=== PATIENT | female | born 1975 | race Caucasian/White ===

== ENCOUNTER 2016-06-15 20:44 | Emergency (ER) | payer BC ==
[~2016-06-15] VITALS: Ht 167.6 cm; Wt 128.0 kg
[~2016-06-15 20:44] MED LIST: LISI10TA PO; LORA-474 PO; MACR100C2 PO; MAGN400T; SYNT112T PO; ZOLO100T PO
[2016-06-15 20:52] VITALS: BP 150/96; PULSE 83; RESP 20; TEMP 98.1; O2SAT 99
[2016-06-15 21:52] VITALS: BP 143/93
[2016-06-15 22:35] VITALS: BP 135/74; PULSE 73; RESP 18; O2SAT 98
--- NOTE | 2016-06-15 22:57 | PD ---
HPI Chief Complaint: Hypertension Time Seen by Provider: 22:21 Travel History International Travel<30 days: No Contact w/Intl Traveler<30days: No Traveled to known affect area: No History of Present Illness HPI This 40-year-old female is complaining of pressure in her neck. She says she been having it off and on for the past 4 days or so. She also gets some pressure throughout her body. There is been no fever or chills and no cough or congestion. She checked her blood pressure at home and it was elevated has a history of polyposis hypothyroidism and is on Synthroid. She is on lisinopril/ hydrochlorothiazide for high blood pressure. She also has a history of anxiety and takes sertraline and Ativan. PFSH Past Medical History Depression: Yes Cancer: No Cardiovascular Problems: Yes Diabetes: Yes (Borderline) Patient Takes Glucophage: No Diminished Hearing: No Glaucoma: No Hepatitis: No Hiatal Hernia: No Hypertension: Yes Kidney Stones: Yes Medical other: No Respiratory: Yes (Asthma ) Immunizations Current: No Thyroid Disease: Yes Tetanus Vaccination: Unknown Influenza Vaccination: No ?: Unknown LMP: 05/19/16 Past Surgical History Abdominal Surgery: No Cardiac Surgery: No Ear Surgery: Yes Endocrine Surgery: No Eye Surgery: No Genitourinary Surgery: No Gynecologic Surgery: No Neurologic Surgery: No Oral Surgery: Yes (IMPACTED TOOTH RIGHT SIDE) Pacemaker: No Thoracic Surgery: No Other Surgery: Yes Social History Alcohol Use: Yes (SOCIALLY) Tobacco Use: No Substance Use: No Allergies-Medications (Allergen,Severity, Reaction): Coded Allergies: Latex (Verified Allergy, Mild, Burning, 06/15/16) Reported Meds & Prescriptions Reported Meds & Active Scripts Active Reported Synthroid (Levothyroxine Sodium) 112 Mcg Tab 112 Mcg PO DAILY Zoloft (Sertraline HCl) 100 Mg Tab 125 Mg PO DAILY Magnesium Oxide 400 Mg Tab 1 DAILY Ativan (Lorazepam) 1 Mg Tab 1 Mg PO DAILY PRN Lisinopril-Hctz 10-12.5 Mg Tab 1 Tab PO BID Review of Systems General / Constitutional: No: Fever, Chills Eyes: No: Diploplia, Blurred Vision HENT: Positive: Other (pressure in the throat), No: Headaches, Vertigo Cardiovascular: No: Chest Pain or Discomfort, Palpitations, Syncope Respiratory: No: Cough Gastrointestinal: No: Vomiting Genitourinary: No: Frequency, Dysuria Physical Exam Narrative GENERAL: Well-developed female SKIN: Warm and dry. HEAD: Atraumatic. Normocephalic. EYES: Pupils equal and round. No scleral icterus. No injection or drainage. ENT: No nasal bleeding or discharge. Mucous membranes pink and moist. NECK: Trachea midline. No JVD. CARDIOVASCULAR: Regular rate and rhythm. No murmur appreciated. RESPIRATORY: No accessory muscle use. Clear to auscultation. Breath sounds equal bilaterally. GASTROINTESTINAL: Abdomen soft, non-tender, nondistended. Hepatic and splenic margins not palpable. MUSCULOSKELETAL: No obvious deformities. No clubbing. No cyanosis. No edema. NEUROLOGICAL: Awake and alert. No obvious cranial nerve deficits. Motor grossly within normal limits. Normal speech. PSYCHIATRIC: Appropriate mood and affect; insight and judgment normal. Data Data Last Documented VS Vital Signs Date Time Temp Pulse Resp B/P Pulse Ox O2 Delivery O2 Flow Rate FiO2 06/15/16 23:54 75 18 144/77 98 Room Air 06/15/16 20:52 98.1 Orders Electrocardiogram (06/15/16 22:54) Complete Blood Count With Diff (06/15/16 22:54) Basic Metabolic Panel (Bmp) (06/15/16 22:54) Magnesium (Mg) (06/15/16 22:54) Labs Laboratory Tests Test 06/15/16 23:00 White Blood Count 9.2 TH/MM3 Red Blood Count 3.80 MIL/MM3 Hemoglobin 10.7 GM/DL Hematocrit 32.2 % Mean Corpuscular Volume 84.6 FL Mean Corpuscular Hemoglobin 28.1 PG Mean Corpuscular Hemoglobin 33.2 % Concent Red Cell Distribution Width 15.1 % Platelet Count 242 TH/MM3 Mean Platelet Volume 8.4 FL Neutrophils (%) (Auto) 56.0 % Lymphocytes (%) (Auto) 29.0 % Monocytes (%) (Auto) 6.1 % Eosinophils (%) (Auto) 5.2 % Basophils (%) (Auto) 3.7 % Neutrophils # (Auto) 5.1 TH/MM3 Lymphocytes # (Auto) 2.7 TH/MM3 Monocytes # (Auto) 0.6 TH/MM3 Eosinophils # (Auto) 0.5 TH/MM3 Basophils # (Auto) 0.3 TH/MM3 CBC Comment DIFF FINAL Differential Comment Sodium Level 140 MEQ/L Potassium Level 4.0 MEQ/L Chloride Level 106 MEQ/L Carbon Dioxide Level 24.4 MEQ/L Anion Gap 10 MEQ/L Blood Urea Nitrogen 27 MG/DL Creatinine 1.20 MG/DL Estimat Glomerular Filtration 49 ML/MIN Rate Random Glucose 90 MG/DL Calcium Level 8.3 MG/DL Magnesium Level 2.4 MG/DL [facility] Medical Decision Making Medical Screen Exam Complete: Yes Emergency Medical Condition: Yes Medical Record Reviewed: Yes Differential Diagnosis Differential includes hypertension, electrolyte imbalance, dysrhythmia Narrative Course Acetaminophen magnesium are normal EKG shows normal sinus rhythm. Patient is stable for discharge. Etiology for her symptoms have not determined. Her symptoms are somewhat atypical Diagnosis Primary Impression: Hypertension Disposition: 01 DISCHARGE HOME Condition: Stable Syed Zhao MD Jun 15, 2016 22:57
[2016-06-15 23:09] LABS: AUTOMATED NEUTROPHIL # 5.1 TH/MM3 (1.8-7.7); BASOPHIL # 0.3 TH/MM3 (0-0.2); BASOPHIL % 3.7 % (0.0-2.0); EOSINOPHIL # 0.5 TH/MM3 (0-0.4); EOSINOPHIL % 5.2 % (0.0-4.0); HEMATOCRIT 32.2 % (35.0-46.0); HEMO FLAGS DIFF FINAL; LYMPHOCYTE # 2.7 TH/MM3 (1.0-4.8); MEAN CELL VOLUME 84.6 FL (80.0-100.0); MEAN CORPUSCULAR HEMOGLOBIN 28.1 PG (27.0-34.0); MEAN CORPUSCULAR HGB CONC 33.2 % (32.0-36.0); MONO % 6.1 % (0.0-8.0); PLATELET COUNT 242 TH/MM3 (150-450); RED CELL DISTRIBUTION WIDTH 15.1 % (11.6-17.2); WHITE BLOOD COUNT 9.2 TH/MM3 (4.0-11.0)
[2016-06-15 23:23] LABS: BICARBONATE 24.4 MEQ/L (21.0-32.0); MAGNESIUM 2.4 MG/DL (1.5-2.5)
[2016-06-15 23:54] VITALS: BP 144/77; PULSE 75; RESP 18; O2SAT 98
--- NOTE | 2016-06-16 16:56 | EKG ---
Date Performed: 06/15/2016 Time Performed: 23:36:06 PTAGE: 40 years EKG: Sinus rhythm Compared to prior tracing no significant change Normal ECG PREVIOUS TRACING : 12/10/2015 05.39 DOCTOR: Georgie Wilks Interpretating Date/Time 06/16/2016 16:53:29
== END 2016-06-16 00:29 | disposition home or self-care (01) ==
LOC: PHED 20:44
DX: I10 Essential (primary) hypertension (principal); R73.03 Prediabetes; Z87.442 Personal history of urinary calculi
CPT/HCPCS: 80048; 83735; 85025; 93005

== ENCOUNTER 2017-10-14 03:27 | Emergency (ER) | payer BC ==
[~2017-10-14] VITALS: Ht 169.5 cm; Wt 131.4 kg
[~2017-10-14 03:27] MED LIST changes: -MACR100C2 PO
[2017-10-14 03:32] VITALS: BP_SYST 183; BP_SYST 187; BP_DIAS 94; BP_DIAS 95; PULSE 81; RESP 16; TEMP 98.1; O2SAT 100
--- NOTE | 2017-10-14 03:38 | PD ---
HPI Chief Complaint: Chest Pain Time Seen by Provider: 03:38 Travel History International Travel<30 days: No Contact w/Intl Traveler<30days: No Traveled to known affect area: No History of Present Illness HPI 41-year-old female came to the emergency room with her with history of substernal chest pain starting from the epigastrium radiating upwards to the base of her throat. Patient says the pain started 45 minutes ago. It is burning in quality. She has never had pain like this in the past. It does not radiate anywhere else. No aggravating or relieving symptoms identified. Patient did not take any medications at home for this pain. She says that she has history of anxiety and had a stress test done approximately 6 months ago. Her vessel scrapper helper is Dr. Iraheta. She takes lisinopril for high blood pressure and no other heart medications. She is not a smoker. No history of stents or bypass in the past. Vital signs were relatively stable. Currently she says the pain is about 2 out of 10. PFSH Past Medical History Narrative Medical List of her past medical, surgical, social and family history reviewed from the nursing note. Depression: Yes Cancer: No Cardiovascular Problems: Yes Diabetes: Yes (Borderline) Diminished Hearing: No Glaucoma: No Hepatitis: No Hiatal Hernia: No Hypertension: Yes Kidney Stones: Yes Respiratory: Yes (Asthma ) Immunizations Current: No Thyroid Disease: Yes Past Surgical History Abdominal Surgery: No Cardiac Surgery: No Ear Surgery: Yes Endocrine Surgery: No Eye Surgery: No Genitourinary Surgery: No Gynecologic Surgery: No Neurologic Surgery: No Oral Surgery: Yes (IMPACTED TOOTH RIGHT SIDE) Pacemaker: No Thoracic Surgery: No Other Surgery: Yes Social History Alcohol Use: Yes (SOCIALLY) Tobacco Use: No Substance Use: No Allergies-Medications (Allergen,Severity, Reaction): Coded Allergies: latex (Unverified Allergy, Mild, Burning, 10/14/17) Comments List of her allergies reviewed from the nursing note. Reported Meds & Prescriptions Reported Meds & Active Scripts Active Klor-Con 10 (Potassium Chloride) 10 Meq Tab 10 Meq PO DAILY Reported Cetirizine (Cetirizine HCl) 10 Mg Tab 10 Mg PO HS Synthroid (Levothyroxine Sodium) 112 Mcg Tab 112 Mcg PO DAILY Zoloft (Sertraline HCl) 100 Mg Tab 150 Mg PO DAILY Magnesium Oxide 400 Mg Tab 1 DAILY Ativan (Lorazepam) 1 Mg Tab 1 Mg PO DAILY PRN Lisinopril-Hctz 10-12.5 Mg Tab 1 Tab PO BID Narrative Medication List of her home medications reviewed from the nursing note. Review of Systems Except as stated in HPI: all other systems reviewed are Neg Cardiovascular: Positive: Chest Pain or Discomfort Physical Exam Narrative GENERAL: Awake, alert, anxious, no obvious distress, morbidly obese SKIN: Focused skin assessment warm/dry. HEAD: Atraumatic. Normocephalic. EYES: Pupils equal and round. No scleral icterus. No injection or drainage. ENT: No nasal bleeding or discharge. Mucous membranes pink and moist. NECK: Trachea midline. No JVD. CARDIOVASCULAR: Regular rate and rhythm. No murmur appreciated. RESPIRATORY: No accessory muscle use. Clear to auscultation. Breath sounds equal bilaterally. GASTROINTESTINAL: Abdomen soft, non-tender, nondistended. Hepatic and splenic margins not palpable. MUSCULOSKELETAL: No obvious deformities. No clubbing. No cyanosis. No edema. NEUROLOGICAL: Awake and alert. No obvious cranial nerve deficits. Motor grossly within normal limits. Normal speech. PSYCHIATRIC: Appropriate mood and affect; insight and judgment normal. Data Data Last Documented VS Vital Signs Date Time Temp Pulse Resp B/P (MAP) Pulse Ox O2 Delivery O2 Flow Rate FiO2 10/14/17 07:35 10/14/17 07:09 100 Room Air 10/14/17 07:09 60 10/14/17 06:43 16 10/14/17 03:32 98.1 Orders Orders Electrocardiogram (10/14/17 03:44) Basic Metabolic Panel (Bmp) (10/14/17 03:44) Complete Blood Count With Diff (10/14/17 03:44) Magnesium (Mg) (10/14/17 03:44) Prothrombin Time / Inr (Pt) (10/14/17 03:44) Troponin I (10/14/17 03:44) Ecg Monitoring (10/14/17 03:44) Bilateral Bp Monitoring (10/14/17 03:44) Iv Access Insert/Monitor (10/14/17 03:44) Oximetry (10/14/17 03:44) Oxygen Administration (10/14/17 03:44) Sodium Chloride 0.9% Flush (Ns Flush) (10/14/17 03:45) Chest, Pa & Lat (10/14/17 03:44) Pantoprazole Inj (Protonix Inj) (10/14/17 03:45) Potassium Chloride (Kcl) (10/14/17 04:30) Troponin I (10/14/17 06:45) Ed Discharge Order (10/14/17 07:25) Labs Laboratory Tests Test 10/14/17 03:45 10/14/17 06:40 White Blood Count 7.8 TH/MM3 Red Blood Count 3.88 MIL/MM3 Hemoglobin 10.3 GM/DL Hematocrit 32.7 % Mean Corpuscular Volume 84.2 FL Mean Corpuscular Hemoglobin 26.5 PG Mean Corpuscular Hemoglobin Concent 31.5 % Red Cell Distribution Width 14.6 % Platelet Count 229 TH/MM3 Mean Platelet Volume 8.5 FL Neutrophils (%) (Auto) 46.8 % Lymphocytes (%) (Auto) 34.6 % Monocytes (%) (Auto) 7.6 % Eosinophils (%) (Auto) 9.5 % Basophils (%) (Auto) 1.5 % Neutrophils # (Auto) 3.7 TH/MM3 Lymphocytes # (Auto) 2.7 TH/MM3 Monocytes # (Auto) 0.6 TH/MM3 Eosinophils # (Auto) 0.7 TH/MM3 Basophils # (Auto) 0.1 TH/MM3 CBC Comment DIFF FINAL Differential Comment Prothrombin Time 10.1 SEC Prothromb Time International Ratio 1.0 RATIO Blood Urea Nitrogen 22 MG/DL Creatinine 1.20 MG/DL Random Glucose 119 MG/DL Calcium Level 8.7 MG/DL Magnesium Level 2.2 MG/DL Sodium Level 137 MEQ/L Potassium Level 3.2 MEQ/L Chloride Level 104 MEQ/L Carbon Dioxide Level 26.2 MEQ/L Anion Gap 7 MEQ/L Estimat Glomerular Filtration Rate 49 ML/MIN Troponin I LESS THAN 0.02 NG/ML LESS THAN 0.02 NG/ML MDM Medical Decision Making Medical Screen Exam Complete: Yes Emergency Medical Condition: Yes Medical Record Reviewed: Yes Interpretation(s) Twelve-lead EKG was reviewed by me. Normal sinus rhythm, normal axis, nonspecific ST-T wave changes. Heart rate of 76 bpm. Differential Diagnosis ACS, non-STEMI, GERD Narrative Course 4:08 AM given the fact that patient had a stress test within 6 months and the chest pain seems atypical comfortable doing 2 sets of negative troponin and then discharge her home. Have asked her to follow-up with her vessel scrapper helper Dr. Iraheta if and when she is discharged. Awaiting for blood test results. I have ordered IV Protonix. 4:45 AM all the blood test results are back. Potassium is low and I have ordered replacement. First set of troponin is negative. Awaiting for a second set which would be drawn at 6:45 PM. The case will be signed over to the oncoming ER physician to follow-up on the second set of troponin. If that is negative patient could go home. Procedures EKG Prior to Arrival: No Physician Communication Physician Communication Dr. Olvera Admitting Information Admitting Physician Requests: Admit Scripts Potassium Chloride ER (Klor-Con 10) 10 Meq Tab 10 MEQ PO DAILY for Electrolyte Replacement, #5 TAB 0 Refills Prov: Laura Logan MD 10/14/17 Lane Gardiner MD October 14, 2017 03:38
[2017-10-14] MEDS ORDERED: SODIUM CHLORIDE 0.9% FLUSH 10 ML FLUSH IVF PRN (03:45)
[2017-10-14] MEDS ORDERED: PANTOPRAZOLE SODIUM 40 MG VIAL IV PUSH ONE (03:45)
[2017-10-14] MEDS ORDERED: CETI10 PO (03:52)
[2017-10-14 04:13] LABS: AUTOMATED NEUTROPHIL # 3.7 TH/MM3 (1.8-7.7); BASOPHIL # 0.1 TH/MM3 (0-0.2); BASOPHIL % 1.5 % (0.0-2.0); EOSINOPHIL # 0.7 TH/MM3 (0-0.4); EOSINOPHIL % 9.5 % (0.0-4.0); HEMATOCRIT 32.7 % (35.0-46.0); HEMOGLOBIN 10.3 GM/DL (11.6-15.3); LYMPH % 34.6 % (9.0-44.0); LYMPHOCYTE # 2.7 TH/MM3 (1.0-4.8); MEAN CELL VOLUME 84.2 FL (80.0-100.0); MEAN CORPUSCULAR HEMOGLOBIN 26.5 PG (27.0-34.0); MEAN CORPUSCULAR HGB CONC 31.5 % (32.0-36.0); MEAN PLATELET VOLUME 8.5 FL (7.0-11.0); MONO % 7.6 % (0.0-8.0); MONOCYTE # 0.6 TH/MM3 (0-0.9); NEUT % 46.8 % (16.0-70.0); PLATELET COUNT 229 TH/MM3 (150-450); RED BLOOD COUNT 3.88 MIL/MM3 (4.00-5.30); RED CELL DISTRIBUTION WIDTH 14.6 % (11.6-17.2); WHITE BLOOD COUNT 7.8 TH/MM3 (4.0-11.0)
[2017-10-14 04:22] LABS: PROTHROMBIN TIME - PATIENT 10.1 SEC (9.8-11.6)
[2017-10-14 04:23] LABS: CHLORIDE 104 MEQ/L (98-107); SODIUM (NA) 137 MEQ/L (136-145)
[2017-10-14 04:25] LABS: CALCIUM 8.7 MG/DL (8.5-10.1)
[2017-10-14 04:26] LABS: BICARBONATE 26.2 MEQ/L (21.0-32.0); BLOOD UREA NITROGEN 22 MG/DL (7-18); GLUCOSE,RANDOM 119 MG/DL (74-106); MAGNESIUM 2.2 MG/DL (1.5-2.5)
--- NOTE | 2017-10-14 04:26 | RADRPT ---
EXAM DATE: 10/14/2017 4:09 AM EDT AGE/SEX: 41 years / Female INDICATIONS: Midline chest pain, burning sensation for 3 hours CLINICAL DATA: This is the patient's initial encounter. Patient reports that signs and symptoms have been present for 1 day and indicates a pain score of 5/10. MEDICAL/SURGICAL HISTORY: Asthma. Hypertension. None. COMPARISON: [facility], CHEST SINGLE AP, 04/07/2012. . FINDINGS: PA and lateral views of the chest demonstrate the lungs to be symmetrically aerated without evidence of mass, infiltrate or effusion. The cardiomediastinal contours are unremarkable. Osseous structures are intact. CONCLUSION: No acute cardiopulmonary disease. Electronically signed by: Barrett Meza MD 10/14/2017 4:25 AM EDT
[2017-10-14 04:29] LABS: GLOMERULAR FILTRATION RATE 49 ML/MIN (>89)
[2017-10-14] MEDS ORDERED: POTASSIUM CHLORIDE 20 MEQ CONTROLLED RELEASE TAB PO ONE (04:30)
[2017-10-14 04:34] LABS: TROPONIN I LESS THAN 0.02 NG/ML (0.02-0.05)
[2017-10-14 04:41] VITALS: BP 152/79; PULSE 66; RESP 16; O2SAT 98
[2017-10-14 06:43] VITALS: BP 135/66; PULSE 62; RESP 16; O2SAT 96
[2017-10-14 07:09] VITALS: O2SAT 100
[2017-10-14] MEDS ORDERED: KLOR10TA PO (07:25)
--- NOTE | 2017-10-14 07:25 | PD ---
Physical Exam Narrative Patient signed out to me by Dr. Gardiner to follow up troponin and disposition the patient. Please see her documentation for complete details. Briefly, patient is a 41 year old female who comes in complaining of a burning sensation that goes up her chest. She says it started when she laid down last night. She was concerned when it did not improve after drinking milk. She had a stress test with Dr. Madden a few months ago that was negative. Exam shows no acute abnormalities. Lungs CTA. Heart RRR. Data Data Last Documented VS Vital Signs Date Time Temp Pulse Resp B/P (MAP) Pulse Ox O2 Delivery O2 Flow Rate FiO2 10/14/17 07:09 100 Room Air 10/14/17 07:09 60 10/14/17 06:43 16 10/14/17 03:32 98.1 Orders Orders Electrocardiogram (10/14/17 03:44) Basic Metabolic Panel (Bmp) (10/14/17 03:44) Complete Blood Count With Diff (10/14/17 03:44) Magnesium (Mg) (10/14/17 03:44) Prothrombin Time / Inr (Pt) (10/14/17 03:44) Troponin I (10/14/17 03:44) Ecg Monitoring (10/14/17 03:44) Bilateral Bp Monitoring (10/14/17 03:44) Iv Access Insert/Monitor (10/14/17 03:44) Oximetry (10/14/17 03:44) Oxygen Administration (10/14/17 03:44) Sodium Chloride 0.9% Flush (Ns Flush) (10/14/17 03:45) Chest, Pa & Lat (10/14/17 03:44) Pantoprazole Inj (Protonix Inj) (10/14/17 03:45) Potassium Chloride (Kcl) (10/14/17 04:30) Troponin I (10/14/17 06:45) Labs Laboratory Tests Test 10/14/17 03:45 10/14/17 06:40 White Blood Count 7.8 TH/MM3 Red Blood Count 3.88 MIL/MM3 Hemoglobin 10.3 GM/DL Hematocrit 32.7 % Mean Corpuscular Volume 84.2 FL Mean Corpuscular Hemoglobin 26.5 PG Mean Corpuscular Hemoglobin Concent 31.5 % Red Cell Distribution Width 14.6 % Platelet Count 229 TH/MM3 Mean Platelet Volume 8.5 FL Neutrophils (%) (Auto) 46.8 % Lymphocytes (%) (Auto) 34.6 % Monocytes (%) (Auto) 7.6 % Eosinophils (%) (Auto) 9.5 % Basophils (%) (Auto) 1.5 % Neutrophils # (Auto) 3.7 TH/MM3 Lymphocytes # (Auto) 2.7 TH/MM3 Monocytes # (Auto) 0.6 TH/MM3 Eosinophils # (Auto) 0.7 TH/MM3 Basophils # (Auto) 0.1 TH/MM3 CBC Comment DIFF FINAL Differential Comment Prothrombin Time 10.1 SEC Prothromb Time International Ratio 1.0 RATIO Blood Urea Nitrogen 22 MG/DL Creatinine 1.20 MG/DL Random Glucose 119 MG/DL Calcium Level 8.7 MG/DL Magnesium Level 2.2 MG/DL Sodium Level 137 MEQ/L Potassium Level 3.2 MEQ/L Chloride Level 104 MEQ/L Carbon Dioxide Level 26.2 MEQ/L Anion Gap 7 MEQ/L Estimat Glomerular Filtration Rate 49 ML/MIN Troponin I LESS THAN 0.02 NG/ML LESS THAN 0.02 NG/ML MDM Supervised Visit with RACHEL: No Narrative Course Repeat Troponin is negative. Patient is requesting potassium to go home with, she feels this is the cause of the pain. She says her symptoms have resolved. Advised to follow up with her primary doctor and cardiology. Advised to return to the ED as needed for any worsening symptoms. Diagnosis Primary Impression: Atypical chest pain Patient Instructions: General Instructions, Noncardiac Chest Pain (ED) Additional Instruction: Follow up with your doctors. Return to the ED as needed for any worsening symptoms. Scripts Potassium Chloride ER (Klor-Con 10) 10 Meq Tab 10 MEQ PO DAILY for Electrolyte Replacement, #5 TAB 0 Refills Prov: Laura Logan MD 10/14/17 Disposition: 01 DISCHARGE HOME Condition: Stable Laura Logan MD October 14, 2017 07:25
--- NOTE | 2017-10-15 07:33 | EKG ---
Date Performed: 10/14/2017 Time Performed: 03:37:34 PTAGE: 41 years EKG: Sinus rhythm WITH SINUS ARRHYTHMIA NORMAL ECG PREVIOUS TRACING : 06/15/2016 23.36 DOCTOR: Tyson Ewing Interpretating Date/Time 10/15/2017 07:28:15
== END 2017-10-14 07:37 | disposition home or self-care (01) ==
LOC: PHED 03:27
DX: R07.89 Other chest pain (principal); E11.9 Type 2 diabetes mellitus without complications; I10 Essential (primary) hypertension; J45.909 Unspecified asthma, uncomplicated; R20.8 Other disturbances of skin sensation; Z79.899 Other long term (current) drug therapy
CPT/HCPCS: 71046; 80048; 83735; 84484; 85025; 85610; 93005; 96374; 99285; C9113